=== PATIENT | female | born 1970 | race African-American/Black ===

== ENCOUNTER 2024-12-25 09:28 | Outpatient (CLI) | payer OTHER | END 2024-12-25 09:29 | disposition home or self-care (01) | LOC: CSHWCC 09:28 | PROVIDERS: ATTEND Nurse Practitioner Family | DX: L89.322 Pressure ulcer of left buttock, stage 2 (principal); E66.01 Morbid (severe) obesity due to excess calories | CPT/HCPCS: 99213; G0463 ==

== ENCOUNTER 2025-01-01 09:28 | Outpatient (CLI) | payer OTHER | END 2025-01-01 09:29 | disposition home or self-care (01) | LOC: CSHWCC 09:28 | PROVIDERS: ATTEND Nurse Practitioner Family | DX: L89.322 Pressure ulcer of left buttock, stage 2 (principal); E66.01 Morbid (severe) obesity due to excess calories | CPT/HCPCS: 99212; G0463 ==